=== PATIENT | female | born 1980 | race Caucasian/White ===

== ENCOUNTER 2019-01-14 09:03 | Emergency (ER) | payer OTHER, SELFPAY ==
[2019-01-14 09:10] VITALS: BP 137/90; PULSE 79; RESP 18; TEMP 37; O2SAT 98
[2019-01-14 10:47] VITALS: BP 141/91; PULSE 84; RESP 16; O2SAT 100
--- NOTE | 2019-01-14 10:47 | ED_ITS ---
HPI - Recheck/Abnormal Lab/Rx General Chief Complaint: Recheck/Abnormal Lab/Rx Stated Complaint: reaction to meds Time Seen by Provider: 01/14/19 10:23 Source: patient and family Mode of arrival: ambulatory Limitations: no limitations History of Present Illness HPI narrative: This is a 38-year-old female who comes in with complaint of reaction her medication. Patient states she was taking BuSpar for anxiety. She states that she would have sort of a mild vision change or issues focusing for about an hour every morning and feel nauseated. So they stopped her we use pr 3 days ago. Her primary care had her start taking 20 mg of Celexa daily and patient has been noticing and that she has been feeling more anxious, she has been feeling sort of jittery, she has felt a little nauseated. She denies any passing out, no chest pain or shortness of breath. No vomiting. She has not had any fevers, she has not had any new weakness, numbness or other changes. Patient is not on any other medications regularly. She denies any other medical issues. She has had C-sections but no other prior surgeries. She does not smoke, she denies any recent alcohol use and no illicit. She also denies any reyn-lwi-lprsgah supplements. Related Data Home Medications Medication Instructions Recorded Confirmed citalopram 20 mg PO DAILY 01/14/19 01/14/19 Allergies Allergy/AdvReac Type Severity Reaction Status Date / Time No Known Drug Allergies Allergy Verified 01/14/19 09:12 Review of Systems Review of Systems ROS Unobtainable: All systems reviewed & are unremarkable except as noted in HPI and below Constitutional Denies chills, Denies fever(s) and Reports poor appetite Neurologic Denies confusion Psychiatric Reports as per HPI, Reports anxiety, Denies confusion, Reports panic attacks, Denies homicidal ideation and Denies suicidal ideation [facility] Social History Smoking Status: Never smoker Social History Smoking Status: Never smoker Exam Narrative Exam Narrative: GENERAL: Alert and oriented x three, well-nourished, well- appearing female in no acute distress. HEENT: Head normocephalic, atraumatic, EOMI, pupils reactive, face symmetric, moist mucous membranes NECK: Supple, full range of motion CARDIOVASCULAR: Regular rate and rhythm without murmurs, rubs or gallops. RESPIRATORY: Breath sounds equal bilaterally, no wheezes rales or rhonchi. ABDOMEN: Soft, nontender. Normoactive bowel sounds all 4 quadrants. No guarding or rebound, rigidity, no mass : No CVA tenderness EXTREMITIES: Normal range of motion, no clubbing or edema. Neurovascularly intact NEUROLOGICAL: Cranial nerves II through XII grossly intact. Moving all extremities, 2/4 DTRs bilateral upper and extremities. SKIN: Warm, dry, no petechiae, no rashes or lesions. Initial Vital Signs Initial Vital Signs: Vital Signs Temperature 98.6 F 01/14/19 09:10 Pulse Rate 79 01/14/19 09:10 Respiratory Rate 18 01/14/19 09:10 Blood Pressure 137/90 01/14/19 09:10 Pulse Oximetry 98 01/14/19 09:10 Course Vital Signs - 8 hr 01/14/19 09:10 Temperature 98.6 F Pulse Rate 79 Respiratory Rate 18 Blood Pressure 137/90 Pulse Oximetry 98 MDM - Recheck/Abnormal Lab/Rx MDM Narrative Medical decision making narrative: I suspect patient is either having some withdrawal or some activating symptoms from her Celexa. Discussed with patient she would like to stop the Celexa. We discussed restarting her Buspar and having her contact her primary care tomorrow. Her primary care doctor is on vacation today so she was not able to talk with them on the phone which is why she came to the ER. Patient feels comfortable with this plan. Significant other is also at the bedside and they are both comfortable at this time. We did discuss signs and symptoms to watch for and reasons to return emergently. Discharge Plan Departure Patient Disposition: Home Clinical Impression: Drug side effects Discharge Date/Time: 01/14/19 11:00 Interventions: ED Discharge Assessment Last Done: 01/14/19 10:59 Instructions: DI for Adverse Drug Reaction -- Other Activity Restrictions/Additional Instructions: Call Dr. Alva, tomorrow to follow up and adjust your medications. Stop the Celexa. You may restart your BuSpar, you may start with 1 tablet daily or if you feel comfortable may take 1 tablet twice daily as you were taking before. Return to the emergency department for fevers greater than 100.4, hyper reflexia, stiff muscles or arms, rash, passing out, chest pain, shortness of breath, persistent vomiting, if you have suicidal ideation, feel unsafe or other new or concerning symptoms. Prescriptions: No Action citalopram 20 mg tablet 20 mg PO DAILY RF: 0 Referrals: Vick Alva DO [Primary Care Provider] -
== END 2019-01-14 11:00 | disposition home or self-care (01) ==
PROVIDERS: Emergency Provider Emergency Medicine; PCP Family Medicine
DX: T88.7XXA Unspecified adverse effect of drug or medicament, initial encounter (principal)
CPT/HCPCS: 99282

== ENCOUNTER → 2021-08-10 12:38 | Outpatient (CLI) | payer OTHER, SELFPAY ==
--- NOTE | 2021-08-10 | DI.MG.S_ITS ---
BILATERAL DIGITAL DIAGNOSTIC MAMMOGRAM 3D/2D: 08/10/2021 CLINICAL: Right breast pain. Comparison is made to exams dated: 07/16/2020 mammogram, 06/19/2019 mammogram, and 06/20/2018 mammogram - [facility]. There are scattered fibroglandular elements in both breasts. No significant masses, calcifications, or other findings are seen in either breast. IMPRESSION: INCOMPLETE: NEEDS ADDITIONAL IMAGING EVALUATION There is no abnormality seen in the right breast to correspond with the diffuse pain and fullness. Clinical followup is recommended. Given patient's increased risk of breast cancer, consider breast MRI if symptoms persist. There is no abnormality seen in the right breast to correspond with the skin lesion in the upper outer quadrant, however, ultrasound is recommended. Ultrasound will be performed immediately following the current exam. This exam was interpreted at Station ID: [id number]. NOTE: For mammograms, a report in lay terms will be sent to the patient. Approximately 15% of breast malignancies will not be visualized mammographically. In the management of a palpable breast mass, a negative mammogram must not discourage biopsy of a clinically suspicious lesion. Electronically Signed By: Vincent Campos M.D. ddp/:08/10/2021 14:13:14 ACR BI-RADS Category 0: Incomplete [id number]
--- NOTE | 2021-08-10 | DI.US.S_ITS ---
LIMITED ULTRASOUND OF RIGHT BREAST: 08/10/2021 CLINICAL: Red skin lesion. Comparison is made to exams dated: 08/10/2021 mammogram - [facility], 07/16/2020 mammogram, 06/19/2019 mammogram, 06/20/2018 mammogram, 02/29/2016 mammogram, and 10/27/2014 mammogram - [facility]. Real-time ultrasound of the right breast 10 o'clock region was performed on the area of interest. No discrete cystic or solid mass lesion identified in the area of skin abnormality. There is nonspecific mildly increased vascularity in the visualized breast tissue. IMPRESSION: NEGATIVE There is no sonographic evidence of malignancy. There is no abnormality seen in the right breast to correspond with the skin lesion at 10 o'clock, however, clinical followup is recommended. Given patient's increased risk of breast cancer, consider a breast MRI if clinical concern persists. A 1 year screening mammogram is recommended. This exam was interpreted at Station ID: [id number]. Electronically Signed By: Vincent potter/:08/10/2021 14:15:08 letter sent: Clinical Evaluation Ultrasound BI-RADS: 1 Negative
== END ==
PROVIDERS: PCP Internal Medicine; Referring Provider Internal Medicine; Visit Provider Internal Medicine
DX: N64.4 Mastodynia (principal); R92.2 Inconclusive mammogram; L98.9 Disorder of the skin and subcutaneous tissue, unspecified
CPT/HCPCS: 76642; 77066; G0279

== ENCOUNTER 2024-02-09 20:18 | Emergency (ER) | payer OTHER, SELFPAY ==
[2024-02-09] VITALS (11 sets, daily range): BP systolic 120–190; BP diastolic 74–113; PULSE 98–147; RESP 18–30; TEMP 37.8; O2SAT 89–98; BMI 37.8
--- NOTE | 2024-02-09 20:25 | DI.CT.S_ITS ---
PROCEDURE: CT ANGIO CHEST PE PROTOCOL INDICATIONS: HYPOXIA, TACHY TECHNIQUE: After the administration of intravenous contrast, 2 mm thick sections acquired from the pulmonary apices to the posterior costophrenic angles. 3-dimensional maximum intensity projection (MIP) coronal and sagittal reformats were then acquired through the thorax. For radiation dose reduction, the following was used: automated exposure control, adjustment of mA and/or kV according to patient size. COMPARISON: None. FINDINGS: Image quality: Suboptimal contrast opacification in the pulmonary arteries Lungs and pleura: No dense consolidation or pleural effusion. No pneumothorax. Mild peribronchial thickening, possibly bronchitis. Mediastinum, heart, and esophagus: Contrast opacification is suboptimal. No central pulmonary embolism. No aortic dissection. The ascending aorta is not well seen on this study. Mildly patulous esophagus diffusely. No pathologic lymph nodes by size criteria Prominent hilar lymph nodes, possibly reactive. Chest wall and thyroid: Unremarkable Upper abdomen: No gross abnormality on these arterial phase images Bones: No acute or suspicious osseous finding. Possible findings of osteonecrosis the right humeral head. IMPRESSION: No acute pulmonary embolism. Contrast opacification however is suboptimal, limiting evaluation particularly of the distal arteries. No dense airspace disease or pleural effusion. Mild peribronchial thickening may represent bronchitis. Other findings as above Dictated by: Joseph Rawls M.D. on 02/09/2024 at 21:06 Approved by: Joseph Rawls M.D. on 02/09/2024 at 21:11
--- NOTE | 2024-02-09 20:27 | ED.SOB ---
HPI - SOB/Dyspnea General Chief Complaint: Shortness of Breath/Dyspnea Stated Complaint: SOB Time Seen by Provider: 02/09/24 20:25 History of Present Illness HPI Narrative: 43-year-old female with reported history of long COVID, asthma presents by private vehicle from home for shortness of breath. Patient states that she has felt overall poorly for the last several days with mild shortness of breath, however tonight her symptoms got significantly worse and she decided to come to the emergency department for evaluation. In triage patient noted to be tachycardic, with oxygen saturations 89% on room air. Related Data Home Medications Medication Instructions Recorded Confirmed alprazolam 0.5 mg tablet (Xanax) 0.5 mg PO BEDTIME PRN 12/27/19 12/27/19 venlafaxine 75 mg tablet 75 mg PO DAILY 12/27/19 12/27/19 ivabradine 7.5 mg tablet (Corlanor) 7.5 mg PO BID 02/09/24 02/09/24 Previous Rx's Medication Instructions Recorded desogestrel-e.estradiol 0.15 1 tab PO DAILY PMDD #84 tabs 01/01/20 mg-0.02 mg(21)/e.estrad 0.01 mg(5) tablet (Kariva (28)) methylprednisolone 4 mg tablet 4 mg PO .asdir #24 tabs 02/10/24 (Medrol) Allergies Allergy/AdvReac Type Severity Reaction Status Date / Time No Known Drug Allergies Allergy Verified 12/27/19 13:21 Patient History Medical History Anxiety (~2016) Chicken pox (~1991) Surgical History Anesthesia History of tonsillectomy (~1991) History of right knee surgery (~2002) History of section (~08/2006) History of section (~02/2005) Family History Father Hyperlipidemia History of heart attack Mother Cervical cancer Breast cancer Diabetes mellitus Hypertension Social History Smoking Status: Never smoker Smoking Status: Never smoker alcohol intake frequency: 0-2 drinks per day Substance Use Type: does not use Exam Initial Vital Signs Initial Vital Signs: Vital Signs Temperature 100.1 F H 02/09/24 20:22 Pulse Rate 147 H 02/09/24 20:22 Respiratory Rate 30 H 02/09/24 20:22 Blood Pressure 190/104 H 02/09/24 20:22 Pulse Oximetry 89 L 02/09/24 20:22 Oxygen Delivery Method Room Air 02/09/24 20:22 Const: Awake, alert, uncomfortable appearing Cardiac: Tachycardia, regular rhythm RESP: Tachypnea, nonproductive cough in room, no wheezing MSK: No swelling, full range of motion, pulses equal Skin: Warm, Dry, intact, no rashes Neuro: AO x3, CN II-XII grossly intact, moves all extremities Course Orders Ordered: ED Orders 02/09/24 21:35 CT angio chest PE protocol Stat Discontinued Medications Albuterol/Ipratropium (Albuterol/Ipratropium 3 Ml Ampul) 3 ml INH NOW ONE Stop: 02/09/24 20:39 Last Admin: 02/09/24 23:27 Dose: 3 ml Documented By: Albuterol/Ipratropium (Albuterol/Ipratropium 3 Ml Ampul) 9 ml INH NOW ONE Stop: 02/09/24 23:16 Last Admin: 02/09/24 23:26 Dose: 9 ml Documented By: Methylprednisolone (Methylprednisolone 125 Mg/2 Ml Vial) 125 mg IV NOW ONE Stop: 02/09/24 22:33 Last Admin: 02/09/24 22:42 Dose: 125 mg Documented By: MARKEL Metoprolol Tartrate (Metoprolol Tartrate 5 Mg/5 Ml Inj) 5 mg IV Q5M [facility] Stop: 02/09/24 22:56 Last Admin: 02/09/24 23:10 Dose: 5 mg Documented By: Admin: 02/09/24 22:55 Dose: 5 mg Documented By: Admin: 02/09/24 22:43 Dose: 5 mg Documented By: MARKEL Vital Signs Vital signs: Vital Signs - 8 hr 02/09/24 22:01 02/09/24 22:03 02/09/24 22:03 Pulse Rate 137 H Respiratory Rate 18 Blood Pressure 180/105 H Pulse Oximetry 96 92 02/09/24 22:30 02/09/24 22:30 02/09/24 22:37 Pulse Rate 141 H Respiratory Rate 25 H Blood Pressure 155/113 H 144/91 H Pulse Oximetry 91 02/09/24 22:37 02/09/24 22:50 02/09/24 22:50 Pulse Rate 139 H 114 H Respiratory Rate Blood Pressure 147/86 H Pulse Oximetry 91 93 02/09/24 23:00 02/09/24 23:00 02/09/24 23:30 Pulse Rate 104 H Respiratory Rate Blood Pressure 120/74 136/76 Pulse Oximetry 95 02/09/24 23:30 02/10/24 00:00 02/10/24 00:00 Pulse Rate 98 H 107 H Respiratory Rate Blood Pressure 132/71 Pulse Oximetry 98 97 02/10/24 00:30 02/10/24 00:30 Pulse Rate 109 H Respiratory Rate 17 Blood Pressure 135/81 Pulse Oximetry 95 MDM - SOB/Dyspnea Differential Diagnosis Differential diagnosis: Likely acute exacerbation of chronic obstructive airways disease, community acquired pneumonia and pulmonary embolism Lab Data 02/09/24 20:30 02/09/24 20:30 Labs: Lab Results 02/09/24 Range/Units 20:30 WBC 15.0 H (4.5-11.0) X10^3/uL RBC 4.49 (4.0-5.2) X10^6/uL Hgb 14.1 (12.0-16.0) g/dL Hct 41.2 (36-46) % MCV 91.9 (80-100) fL MCH 31.5 (26-34) PG MCHC 34.3 (30-36) % RDW 13.8 (11.6-14.8) % Plt Count 275 (150-400) X10^3/uL Neut % (Auto) 65.8 (50-75) % Lymph % (Auto) 23.1 L (25-40) % [place] % (Auto) 6.3 (3-14) % Eos % (Auto) 4.2 H (2-4) % Baso % (Auto) 0.6 (0-2) % Neut # (Auto) 9900 H (9688-7008) /uL Lymph # (Auto) 3500 (6016-7084) /uL [place] # (Auto) 900 (0-900) /uL Eos # (Auto) 600 H (0-450) /uL Baso # (Auto) 100 (0-100) /uL PT 10.4 (9.4-12.5) SECONDS INR 0.9 (0.9-1.3) Sodium 138 (137-145) mmol/L Potassium 4.1 (3.4-5.1) mmol/L Chloride 107 (98-107) mmol/L Carbon Dioxide 20 L (22-32) mmol/L BUN 16 (7-17) mg/dL Creatinine 0.77 (0.52-1.04) mg/dL Estimated GFR > 60 (>60) mL/min BUN/Creatinine Ratio 20.8 (6-22) Glucose 98 (70-100) mg/dL Calcium 9.9 (8.4-10.2) mg/dL Total Bilirubin 0.6 (0.2-1.3) mg/dL AST 59 H (14-36) IU/L ALT 50 H (<35) IU/L Alkaline Phosphatase 116 (38-126) U/L Total Creatine Kinase 142 H (30-135) U/L Troponin I < 0.012 (0.01-0.034) ng/mL NT-Pro-B Natriuret Pep 96 (<125) pg/mL Total Protein 7.5 (6.3-8.2) g/dL Albumin 4.2 (3.5-5.0) g/dL Globulin 3.3 (1.7-4.1) g/dL Albumin/Globulin Ratio 1.3 (1.0-2.8) Imaging Data CT scan - chest: My Impression: PROCEDURE: CT ANGIO CHEST PE PROTOCOL INDICATIONS: HYPOXIA, TACHY TECHNIQUE: After the administration of intravenous contrast, 2 mm thick sections acquired from the pulmonary apices to the posterior costophrenic angles. 3-dimensional maximum intensity projection (MIP) coronal and sagittal reformats were then acquired through the thorax. For radiation dose reduction, the following was used: automated exposure control, adjustment of mA and/or kV according to patient size. COMPARISON: [facility], CT, CT ANGIO CHEST PE PROTOCOL, 02/09/2024, 20:29. FINDINGS: Image quality: Diagnostic Lungs and pleura: No dense airspace disease. Mild peribronchial thickening. No pleural effusions. Mediastinum, heart, and esophagus: Mild motion artifact. No acute pulmonary embolism is identified Prominent hilar lymph nodes. No pathologic lymph nodes by size criteria. Normal heart size. Mildly patulous esophagus. Chest wall and thyroid: Unremarkable Upper abdomen: No gross abnormality on these arterial phase images Bones: Nonacute appearing left lower rib deformities IMPRESSION: Mild motion artifact. No acute pulmonary embolism. No dense airspace disease or pleural effusions. Possible findings of bronchitis. Prominent hilar lymph nodes, nonspecific, possibly reactive. Other findings above. Dictated by: Joseph Rawls M.D. on 02/09/2024 at 22:09 Approved by: Joseph Rawls M.D. on 02/09/2024 at 22:14 ECG Data Interpretation: Sinus tachycardia, no ST T wave changes, normal MO MDM Narrative Medical decision making narrative: Shortness of breath with tachycardia and hypoxia. Placed on nasal cannula with improvement in saturations to 95%. Based on patient's presentation, clear lungs on exam, and hypoxia concern is for pulmonary embolism. CT angio ordered for assessment. Unfortunately due to contrast timing bolus unable to see pulmonary arteries passed the main pulmonary artery. Discussed with Radiology, who stated that could not definitively rule out segmental or subsegmental pulmonary embolism based on contrast bolus timing, and if suspicion was high then he recommended rescanning. CT angio negative for pulmonary embolism or pleural effusions. Note possible findings of bronchitis and prominent hilar lymph nodes. Steroids and additional duonebs ordered. Patient improved after steroids and DuoNebs, she has had less coughing and oxygen saturations are now 95% on room air. Patient states that she feels better and her goal would be to go home. Walking ambulation trial showed stable saturations, lowest O2 sat 92%. Patient to be discharged on steroids. Patient requested a steroid taper, since abruptly stopping steroids seems to cause her body aches. A slightly longer taper of steroids sent to pharmacy of choice. Patient counseled to follow up with her primary care doctor or return to the emergency department for any new or worsening concerns. Discharge Plan Departure Patient Disposition: Home Clinical Impression: Bronchitis Instructions: DI for Acute Bronchitis Activity Restrictions/Additional Instructions: Your oxygen saturations are normal here today. Your CT did not show any pneumonia or pulmonary embolism. Follow up with your primary care doctor. Prescriptions: New methylprednisolone [Medrol] 4 mg tablet 4 mg PO .asdir Qty: 24 0RF Rx Instructions: DAY 1: TAKE 6 TABLETS DAY 2: TAKE 5 TABLETS DAY 3: TAKE 4 TABLETS DAY 4: TAKE 3 TABLETS DAY 5: TAKE 2 TABLETS DAY 6: TAKE 2 TABLETS DAY 7: TAKE 1 TABLET DAY 8: TAKE 1 TABLET No Action desog-e.estradiol/e.estradiol [Raudel (28)] 0.15-0.02 mgx21 /0.01 mg x 5 tablet 1 tab PO DAILY Qty: 84 4RF Rx Instructions: Take once daily at same time every day. venlafaxine 75 mg tablet 75 mg PO DAILY alprazolam [Xanax] 0.5 mg tablet 0.5 mg PO BEDTIME PRN Corlanor 7.5 mg tablet 7.5 mg PO BID Referrals: Simeon Thompson MD [Primary Care Provider] - Stand Alone Forms: Patient Portal/API
--- NOTE | 2024-02-09 20:35 | EKG_ITS ---
[facility] [address] [address] Test Date: 2024-02-09 Pat Name: Brigid Pham Department: [facility] Room: Gender: Female Intern Product Marketing Manager: JEAN-PAUL : 1980 Requested By: Order Number: [id number] Reading MD: Cesar Talley Measurements Intervals [place] Rate: 137 P: 61 KS: 130 QRS: 65 QRSD: 72 T: 41 QT: 290 QTc: 437 Interpretive Statements Sinus tachycardia Electronically Signed On 02-10-2024 18:32:41 PDT by Cesar Talley
[2024-02-09 20:44] LABS: Add Manual Diff / Slide Review NO; Basophils Absolute Auto 100 /uL (0-100); Basophils Percent Auto 0.6 % (0-2); Eosinophils Absolute Auto 600 /uL (0-450); Eosinophils Percent Auto 4.2 % (2-4); Hematocrit 41.2 % (36-46); Hemoglobin 14.1 g/dL (12.0-16.0); Lymphocytes Absolute Auto 3500 /uL (1100-4500); Lymphocytes Percent Auto 23.1 % (25-40); Mean Corpuscular HGB Conc 34.3 % (30-36); Mean Corpuscular Hemoglobin 31.5 PG (26-34); Mean Corpuscular Volume 91.9 fL (80-100); Monocytes Absolute Auto 900 /uL (0-900); Monocytes Percent Auto 6.3 % (3-14); Neutrophils Absolute Auto 9900 /uL (1500-7000); Neutrophils Percent Auto 65.8 % (50-75); Platelet Count 275 X10^3/uL (150-400); Red Blood Cell Count 4.49 X10^6/uL (4.0-5.2); Red Cell Distribution Width 13.8 % (11.6-14.8)
[2024-02-09 20:51] LABS: INR 0.9 (0.9-1.3); Prothrombin Time 10.4 SECONDS (9.4-12.5)
[2024-02-09 20:55] LABS: Alanine Aminotransferase 50 IU/L (<35); Albumin 4.2 g/dL (3.5-5.0); Albumin Globulin Ratio 1.3 (1.0-2.8); Alkaline Phosphatase 116 U/L (38-126); Aspartate Aminotransferase 59 IU/L (14-36); BUN Creatinine Ratio 20.8 (6-22); Bilirubin Total 0.6 mg/dL (0.2-1.3); Blood Urea Nitrogen 16 mg/dL (7-17); Calcium 9.9 mg/dL (8.4-10.2); Carbon Dioxide 20 mmol/L (22-32); Chloride 107 mmol/L (98-107); Creatine Kinase 142 U/L (30-135); Estimated Glomerular Filt Rate > 60 mL/min (>60); Globulin 3.3 g/dL (1.7-4.1); Glucose 98 mg/dL (70-100); HEMOLYSIS 21 (0-50); Potassium 4.1 mmol/L (3.4-5.1); Sodium 138 mmol/L (137-145); Total Protein 7.5 g/dL (6.3-8.2)
--- NOTE | 2024-02-09 20:55 | PC.NURSE ---
per pt has had problems since having covid earlier this year does find when she is taking rounds of prednisone but when she is finished she begins to have sob again
[2024-02-09 21:03] LABS: NT-proBNP (BNP-Adult 18+) 96 pg/mL (<125)
[2024-02-09 21:07] LABS: Troponin I < 0.012 ng/mL (0.01-0.034)
--- NOTE | 2024-02-09 21:35 | DI.CT.S_ITS ---
PROCEDURE: CT ANGIO CHEST PE PROTOCOL INDICATIONS: HYPOXIA, TACHY TECHNIQUE: After the administration of intravenous contrast, 2 mm thick sections acquired from the pulmonary apices to the posterior costophrenic angles. 3-dimensional maximum intensity projection (MIP) coronal and sagittal reformats were then acquired through the thorax. For radiation dose reduction, the following was used: automated exposure control, adjustment of mA and/or kV according to patient size. COMPARISON: [facility], CT, CT ANGIO CHEST PE PROTOCOL, 02/09/2024, 20:29. FINDINGS: Image quality: Diagnostic Lungs and pleura: No dense airspace disease. Mild peribronchial thickening. No pleural effusions. Mediastinum, heart, and esophagus: Mild motion artifact. No acute pulmonary embolism is identified Prominent hilar lymph nodes. No pathologic lymph nodes by size criteria. Normal heart size. Mildly patulous esophagus. Chest wall and thyroid: Unremarkable Upper abdomen: No gross abnormality on these arterial phase images Bones: Nonacute appearing left lower rib deformities IMPRESSION: Mild motion artifact. No acute pulmonary embolism. No dense airspace disease or pleural effusions. Possible findings of bronchitis. Prominent hilar lymph nodes, nonspecific, possibly reactive. Other findings above. Dictated by: Joseph Rawls M.D. on 02/09/2024 at 22:09 Approved by: Joseph Rawls M.D. on 02/09/2024 at 22:14
[2024-02-09] MEDS: methylPREDNISolone 125 MG/2 ML VIAL IV (22:42)
[2024-02-09] MEDS: METOPROLOL TARTRATE 5 MG/5 ML INJ IV ×3 (22:43→23:10)
--- NOTE | 2024-02-09 22:43 | PC.NURSE ---
pt O2 sat staying around 89% on room air pt placed on 2L/NC which brought O2 sat up to 95% Dr Payne informed
[2024-02-09] MEDS: ALBUTEROL/IPRATROPIUM 3 ML AMPUL 9 ML INH (23:26)
[2024-02-09] MEDS: ALBUTEROL/IPRATROPIUM 3 ML AMPUL INH (23:27)
[2024-02-10] VITALS: BP 132/71; PULSE 107; O2SAT 97
[2024-02-10 00:30] VITALS: BP 135/81; PULSE 109; RESP 17; O2SAT 95
== END 2024-02-10 01:03 | disposition home or self-care (01) ==
PROVIDERS: Emergency Provider Emergency Medicine; PCP Internal Medicine
DX: J20.9 Acute bronchitis, unspecified (principal); R00.0 Tachycardia, unspecified; R09.02 Hypoxemia
CPT/HCPCS: 36415; 71275; 80053; 82550; 83880; 84484; 85025; 85610; 93005; 94640; 96374; 96375; 99284; J2919; Q9967

== ENCOUNTER → 2024-03-04 08:31 | Outpatient (CLI) | payer OTHER, SELFPAY ==
--- NOTE | 2024-03-04 08:32 | DI.CT.S_ITS ---
PROCEDURE: CT SOFT TISSUE NECK W CON INDICATIONS: throat tightness, persistent cough TECHNIQUE: After the administration of intravenous contrast, 3.0 mm axial sections acquired from the sella to the aortic arch. 3 mm thick coronal and sagittal reformats were generated. For radiation dose reduction, the following was used: automated exposure control. COMPARISON: None. FINDINGS: Skull Base: The visualized intracranial contents, skull, and orbits are unremarkable. Visualized paranasal sinuses are clear. Pharynx and Larynx: The nasopharyngeal airway is patent and midline. Parapharyngeal soft tissues including palatine tonsils and base of the tongue are normal. Retropharyngeal space unremarkable. Normal appearance of the false and true vocal cords. Muscles and Fascial Planes: Fascial planes are well maintained. No abscess or mass lesion. Lymph Nodes: No evidence of adenopathy. Vasculature: Unremarkable. Submandibular and Parotid Glands: Normal in size and attenuation. Thyroid: Unremarkable. No enlarged or calcified nodules. Bones: No acute fracture. No osteolytic or blastic lesion is evident. Normal bone mineralization. Lung Apices: The visualized lung apices are clear. IMPRESSION: Normal CT of the neck Approved by: Shantanu Jose M.D. on 03/04/2024 at 17:26
[2024-03-04 10:11] LABS: Hemoglobin A1C% w Est Avg Glu 5.1 % (4.0-6.0)
[2024-03-04 10:23] LABS: Cholesterol 270 mg/dL (140-199); HDL Cholesterol 98 mg/dL (40-60); LDL Cholesterol Calculated 151 mg/dL (<100); Triglycerides 106 mg/dL (35-150)
[2024-03-04 10:27] LABS: Follicle Stimulating Hormone 4.41 mIU/mL; Luteinizing Hormone 8.34 mIU/mL
[2024-03-04 10:41] LABS: Prolactin 16.3 ng/mL (3.0-18.6)
[2024-03-04 10:51] LABS: TSH w/ Reflex to FT4 3.55 uIU/mL (0.47-4.68)
[2024-03-04 11:31] LABS: Appearance Urine UA SL CLOUDY; Bilirubin Urine UA NEGATIVE (NEGATIVE); Color Urine UA YELLOW; Glucose Urine UA NEGATIVE (Negative); Ketones Urine UA NEGATIVE (NEGATIVE); Leukocyte Esterase Urine UA NEGATIVE (NEGATIVE); Nitrite Urine UA NEGATIVE (Negative); Occult Blood Urine UA TRACE-INTACT (Negative); Protein Urine UA NEGATIVE (Negative); Urobilinogen Urine UA 0.2 E.U./dL (0.2)
[2024-03-04 11:53] LABS: Bacteria Urine Many (>30); RBC Urine 1-5/HPF (0-5/HPF); Squamous Epithelial Cell Urine 10-30 /HPF (0-5/HPF); Urine Volume 10mL (spun); WBC Urine 0-1/HPF (0-5/HPF)
[2024-03-04 11:54] LABS: Culture Indicated Urine Cult Not Indicated
== END ==
LOC: CT 08:32
PROVIDERS: PCP Family Medicine; Referring Provider Family Medicine; Visit Provider Family Medicine
DX: N93.9 Abnormal uterine and vaginal bleeding, unspecified (principal); R09.89 Other specified symptoms and signs involving the circulatory and respiratory systems; R31.9 Hematuria, unspecified
CPT/HCPCS: 36415; 70491; 80061; 81001; 82397; 83001; 83002; 83036; 84146; 84443; Q9967

== ENCOUNTER → 2024-03-08 15:40 | Outpatient (CLI) | payer OTHER, SELFPAY ==
--- NOTE | 2024-03-08 15:41 | DI.US.S_ITS ---
PROCEDURE: US PELVIC COMPLETE INDICATIONS: Abnormal uterine bleeding TECHNIQUE: Real-time scanning was performed of the pelvic organs, with image documentation. Additional endovaginal scanning was necessary due to incomplete visualization of the adnexal and endometrial structures by transabdominal scanning. COMPARISON: [facility], US, US PELVIC COMPLETE, 12/27/2019, 13:41. FINDINGS: Uterus: Uterus is anteverted and normal in size at 9.5 x 54.1 x 5.1 cm. The myometrium is slightly heterogenous. The endometrium measures 6.1 mm combined thickness. Ovaries: The right ovary measures 2.9 x 1.7 x 2.6 cm, with a calculated ovarian volume of 6.9 cc. The left ovary is not identified. The right ovary has a normal sonographic appearance. Less than 12 follicles can be seen in the right ovary. No adnexal masses are seen. Other: No pathologic free abdominal or pelvic fluid. IMPRESSION: No sonographic abnormality of the uterus or right ovary. Nonvisualization of the left ovary. We strive to produce accurate, complete, and clear reports of imaging services. To assist us in improving patient care, this report was composed using standard report templates and voice recognition software. Therefore, it may contain abnormal punctuation, insertions and/or omissions. Occasional wrong-word or sound-alike substitutions may occur. Though we review the report and make efforts to correct it, we do recommend that the report be read carefully in proper context to recognize any text inaccuracies. Dictated by: Sudhakar Kang M.D. on 03/12/2024 at 11:02 Approved by: Sudhakar Kang M.D. on 03/12/2024 at 11:06
--- NOTE | 2024-03-08 15:41 | DI.MG.S_ITS ---
BILATERAL DIGITAL SCREENING MAMMOGRAM 3D/2D WITH CAD: 03/08/2024 CLINICAL: Routine screening. Family history of breast cancer. Comparison is made to exams dated: 08/10/2021 mammogram - [facility], 07/16/2020 mammogram, and 06/19/2019 mammogram - [facility]. There are scattered areas of fibroglandular density in both breasts (category b / 25%-50% glandular tissue). Current study was also evaluated with a Computer Aided Detection (CAD) system. There is a possible irregular high density asymmetry in the left breast at 12 o'clock middle depth. No other significant masses, calcifications, or other findings are seen in either breast. IMPRESSION: INCOMPLETE: NEEDS ADDITIONAL IMAGING EVALUATION The possible irregular high density asymmetry in the left breast is indeterminate. Additional views with possible ultrasound are recommended. Based on the Tyrer Cuzick model (a risk assessment model) the patient's lifetime risk is 18.0% and her 10 year risk is 2.9%. According to the ACR, ACS, and NCCN guidelines, an annual breast MRI exam along with mammogram is recommended if the patient's lifetime risk is 20% or greater. This exam was interpreted at Station ID: [id number]. NOTE: For mammograms, a report in lay terms will be sent to the patient. Approximately 15% of breast malignancies will not be visualized mammographically. In the management of a palpable breast mass, a negative mammogram must not discourage biopsy of a clinically suspicious lesion. Electronically Signed By: Vidya small/hayden:03/08/2024 17:21:01 letter sent: Additional Imaging Needed ACR BI-RADS Category 0: Incomplete 3340F
== END ==
PROVIDERS: PCP Family Medicine; Referring Provider Family Medicine; Visit Provider Family Medicine
DX: Z12.31 Encounter for screening mammogram for malignant neoplasm of breast (principal); N93.9 Abnormal uterine and vaginal bleeding, unspecified; R92.323 Mammographic fibroglandular density, bilateral breasts; Z80.3 Family history of malignant neoplasm of breast
CPT/HCPCS: 76830; 76856; 77063; 77067

== ENCOUNTER → 2024-03-15 11:41 | Outpatient (CLI) | payer OTHER, SELFPAY ==
--- NOTE | 2024-03-15 11:42 | DI.US.S_ITS ---
LIMITED ULTRASOUND OF LEFT BREAST: 03/15/2024 CLINICAL: Patient returns today to evaluate a focal asymmetry in the left breast. Comparison is made to exams dated: 03/15/2024 mammogram, 03/08/2024 mammogram, 08/10/2021 mammogram - [facility], 07/16/2020 mammogram, and 06/19/2019 mammogram - [facility]. Color flow and real-time ultrasound of the left breast 12 o'clock region were performed. Pichardo scale images of the real-time examination were reviewed. No significant abnormalities were seen sonographically in the left breast. IMPRESSION: NEGATIVE There is no sonographic evidence of malignancy. A 1 year screening mammogram is recommended. Exam findings were conveyed to the patient. This exam was interpreted at Station ID: [id number]. Electronically Signed By: Joshua Malhotra M.D. slc/:03/15/2024 12:53:36 letter sent: Normal Exam Ultrasound BI-RADS: 1 Negative
--- NOTE | 2024-03-15 11:42 | DI.MG.S_ITS ---
UNILATERAL LEFT DIGITAL DIAGNOSTIC MAMMOGRAM 3D/2D WITH ADDITIONAL VIEWS: 03/15/2024 CLINICAL: Additional evaluation requested from prior study. Comparison is made to exams dated: 03/08/2024 mammogram, 08/10/2021 mammogram - [facility], and 07/16/2020 mammogram - [facility]. There are scattered areas of fibroglandular density in the left breast (category b / 25%-50% glandular tissue). There is a possible asymmetry in the left breast at 12 o'clock middle depth. This is not seen in additional views. No other significant masses or calcifications are seen in the breast. IMPRESSION: INCOMPLETE: NEEDS ADDITIONAL IMAGING EVALUATION The possible asymmetry in the left breast is indeterminate. A second look with ultrasound is recommended and will immediately follow. Based on the Tyrer Cuzick model (a risk assessment model) the patient's lifetime risk is 18.0% and her 10 year risk is 2.9%. According to the ACR, ACS, and NCCN guidelines, an annual breast MRI exam along with mammogram is recommended if the patient's lifetime risk is 20% or greater. This exam was interpreted at Station ID: [id number]. NOTE: For mammograms, a report in lay terms will be sent to the patient. Approximately 15% of breast malignancies will not be visualized mammographically. In the management of a palpable breast mass, a negative mammogram must not discourage biopsy of a clinically suspicious lesion. Electronically Signed By: Joshua Malhotra M.D. slc/:03/15/2024 12:14:48 ACR BI-RADS Category 0: Incomplete 3340F
== END ==
LOC: MAMMO 11:42
PROVIDERS: PCP Family Medicine; Referring Provider Family Medicine; Visit Provider Family Medicine
DX: R92.8 Other abnormal and inconclusive findings on diagnostic imaging of breast (principal); Z12.39 Encounter for other screening for malignant neoplasm of breast; N63.20 Unspecified lump in the left breast, unspecified quadrant
CPT/HCPCS: 76642; 77065; G0279

== ENCOUNTER → 2024-04-23 14:42 | Outpatient (CLI) | payer OTHER, SELFPAY ==
--- NOTE | 2024-04-23 14:44 | DI.RAD.S_ITS ---
PROCEDURE: XR FOOT RT MIN 3V INDICATIONS: Pain 4th and 5th digits following trauma. TECHNIQUE: Three views of the right foot were obtained COMPARISON: None. FINDINGS: Bones: Mild hallux valgus , pes cavus and hammertoe deformities in the 2nd through 5th digits noted. Joints: The joint spaces are normal in width and alignment without arthritic change. Soft tissues: Mild diffuse soft tissue swelling noted. IMPRESSION: Chronic findings. No fracture . Dictated by: Jerry Hathaway M.D. on 04/24/2024 at 10:20 Approved by: Jerry Hathaway M.D. on 04/24/2024 at 10:22
== END ==
PROVIDERS: PCP Family Medicine; Referring Provider Family Medicine; Visit Provider Family Medicine
DX: M20.11 Hallux valgus (acquired), right foot (principal); M25.571 Pain in right ankle and joints of right foot
CPT/HCPCS: 73630

== ENCOUNTER 2024-08-29 12:37 | Emergency (ER) | payer OTHER, SELFPAY ==
[2024-08-29] VITALS (7 sets, daily range): BP systolic 147–174; BP diastolic 65–100; PULSE 80–89; RESP 12–18; TEMP 36.7; O2SAT 96–100; BMI 35.9
[2024-08-29 15:06] LABS: Add Manual Diff / Slide Review NO; Basophils Absolute Auto 100 /uL (0-100); Basophils Percent Auto 0.6 % (0-2); Eosinophils Absolute Auto 0 /uL (0-450); Eosinophils Percent Auto 0.2 % (2-4); Hematocrit 46.2 % (36-46); Hemoglobin 15.9 g/dL (12.0-16.0); Lymphocytes Absolute Auto 1200 /uL (1100-4500); Lymphocytes Percent Auto 8.8 % (25-40); Mean Corpuscular HGB Conc 34.4 % (30-36); Mean Corpuscular Hemoglobin 31.4 PG (26-34); Mean Corpuscular Volume 91.4 fL (80-100); Monocytes Absolute Auto 700 /uL (0-900); Monocytes Percent Auto 4.9 % (3-14); Neutrophils Absolute Auto 12000 /uL (1500-7000); Neutrophils Percent Auto 85.5 % (50-75); Platelet Count 280 X10^3/uL (150-400); Red Blood Cell Count 5.06 X10^6/uL (4.0-5.2); Red Cell Distribution Width 14.8 % (11.6-14.8); White Blood Cell Count 14.1 X10^3/uL (4.5-11.0)
[2024-08-29 15:13] LABS: Prothrombin Time 11.7 SECONDS (9.4-12.5)
[2024-08-29 15:15] LABS: PTT Partial Thromboplastin Tim 35 SECONDS (25.1-36.5)
[2024-08-29 15:17] LABS: Alanine Aminotransferase 52 IU/L (<35); Albumin Globulin Ratio 1.4 (1.0-2.8); Alkaline Phosphatase 93 U/L (38-126); Aspartate Aminotransferase 52 IU/L (14-36); BUN Creatinine Ratio 13.5 (6-22); Bilirubin Total 1.2 mg/dL (0.2-1.3); Blood Urea Nitrogen 10 mg/dL (7-17); Calcium 10.5 mg/dL (8.4-10.2); Carbon Dioxide 23 mmol/L (22-32); Chloride 99 mmol/L (98-107); Estimated Glomerular Filt Rate > 60 mL/min (>60); Globulin 3.6 g/dL (1.7-4.1); Glucose 91 mg/dL (70-100); HEMOLYSIS < 15 (0-50); Potassium 4.1 mmol/L (3.4-5.1); Sodium 136 mmol/L (137-145); Total Protein 8.6 g/dL (6.3-8.2)
[2024-08-29 15:30] LABS: Ictotest Urine Positive (Negative); Urine Volume 10mL (spun)
[2024-08-29 15:31] LABS: Bacteria Urine Occasional (0-1); Culture Indicated Urine Cult Not Indicated; Mucus Urine 3+ (Negative); RBC Urine 0-1/HPF (0-5/HPF); Squamous Epithelial Cell Urine 5-10 /HPF (0-5/HPF); WBC Urine 1-5/HPF (0-5/HPF)
[2024-08-29] MEDS: PANTOPRAZOLE 40 MG VIAL 80 MG IV (15:31)
--- NOTE | 2024-08-29 16:25 | ED.GIBLEED ---
HPI - GI Bleed <Richard Lynnervin, DO - Last Filed: 08/29/24 18:09> General Chief complaint: GI Bleed Stated complaint: abd pain [id number] vomitting, diarrhea, BRBPR Time Seen by Provider: 08/29/24 16:25 Source: patient Mode of arrival: Ambulatory History of Present Illness HPI Narrative: Patient is a 44-year-old female with a past medical history of asthma, comes into the ED from home for evaluation of abdominal pain nausea vomiting diarrhea bright red blood per rectum. Patient states that symptoms started earlier this morning lasting for about 2 hours with slight improvement but given persistent symptoms decided come into the ED for further evaluation treatment. Denies any recent travel denies any recent sick contacts denies any recent antibiotic use. She denies any pain with defecation. He is that her symptoms have improved but are waxing and waning in nature describes as a pressure nothing making it better or worse. Not on any blood thinners. No trauma or falls. Related Data Home Medications Medication Instructions Recorded Confirmed alprazolam 0.5 mg tablet (Xanax) 0.5 mg PO BEDTIME PRN 12/27/19 07/25/24 ivabradine 7.5 mg tablet (Corlanor) 7.5 mg PO BID 02/09/24 07/25/24 montelukast 10 mg tablet 10 mg PO DAILY 02/15/24 07/25/24 omeprazole 20 mg capsule,delayed 20 mg PO DAILY 02/15/24 07/25/24 release sertraline 100 mg tablet 100 mg PO DAILY 02/15/24 07/25/24 sertraline 50 mg tablet 50 mg PO DAILY 02/15/24 07/25/24 Previous Rx's Medication Instructions Recorded fluticasone 500 mcg-salmeterol 50 1 inh inhalation BID #60 ea 03/13/24 mcg/dose blistr powdr for inhalation (Wixela Inhub) tiotropium bromide 2.5 2 puff inhalation DAILY #4 grams 03/13/24 mcg/actuation mist for inhalation (Spiriva Respimat) ondansetron 4 mg disintegrating 4 mg PO Q8H PRN nausea and 07/25/24 tablet vomiting #20 tabs semaglutide 0.25 mg or 0.5 mg (2 1 mg (1.472 mL) SUBCUT QWEEK #6 mL 08/01/24 mg/3 mL) subcutaneous pen injector (Ozempic) amoxicillin 875 mg-potassium 1 tab PO BID #20 tabs 08/29/24 clavulanate 125 mg tablet Allergies Allergy/AdvReac Type Severity Reaction Status Date / Time No Known Drug Allergies Allergy Verified 07/25/24 14:42 Review of Systems <Richard Casey DO - Last Filed: 08/29/24 18:09> Review of Systems Narrative: General: Denies fever, chills, weight loss HEENT: Denies headache, eye drainage, eye irritation, head trauma, sore throat, voice change Cardiovascular: Denies any chest pain, palpitations, shortness of breath, tachycardia Respiratory: Denies any shortness of breath, cough, wheeze, stridor GI/: Positive abdominal pain, nausea, vomiting, diarrhea, bright red blood per rectum, denies melanotic stools, urinary frequency, urinary retention, dysuria, hematuria MSK: Denies any joint pain, muscle pains, swelling Skin: Denies any rashes, lesions, discoloration Neuro: Denies any headache, lightheadedness, dizziness, fainting, weakness Psych: Denies SI/HI Patient History <Richard Casey DO - Last Filed: 08/29/24 18:09> Medical History (Updated 08/29/24 @ 19:12 by Delano Jameson MD) Asthma (~2019) Anxiety (~2016) Chicken pox (~1991) Surgical History Anesthesia History of tonsillectomy (~1991) History of right knee surgery (~2002) History of section (~08/2006) History of section (~02/2005) Family History (Updated 02/19/24 @ 19:20 by Caprice Funez) Father Hyperlipidemia History of heart attack Hypertension Mental health problem Mother Cervical cancer Breast cancer Diabetes mellitus Hypertension Hyperlipidemia Mental health problem Grandfather History of heart disease Hyperlipidemia Hypertension Grandmother History of heart disease Social History Smoking Status: Never smoker Smoking Status: Never smoker alcohol intake frequency: 0-2 drinks per day Exam <Richard Casey DO - Last Filed: 08/29/24 18:09> Narrative Exam Narrative: General: Cooperative, comfortable, well-developed, not in acute distress HEENT: Normocephalic, atraumatic, PERRLA, normal sclera, eyelids normal, Neck: Active full range of motion, atraumatic Chest: Normal to inspection, negative crepitus, no overlying erythema ecchymosis Respiratory: Normal respiratory effort, not in acute respiratory distress, clear to auscultation bilaterally negative cough, wheeze, tachypnea, rhonchi, rales Cardiology: Regular rate rhythm negative gallop, murmur, rubs GI/: Normal to inspection, soft, nonrigid, no tenderness to palpation, exam deferred MSK: Full range of active range of motion of all 4 extremities, atraumatic Skin: No rashes lesions noted Neuro: Alert awake oriented x3, moves all 4 extremities spontaneously, cranial nerves intact, able to answer all questions appropriately follows commands appropriately Psych: Cooperative, negative suicidal or homicidal ideations Initial Vital Signs Initial Vital Signs: Vital Signs Temperature 98.1 F 08/29/24 12:59 Pulse Rate 89 08/29/24 12:59 Respiratory Rate 18 08/29/24 12:59 Blood Pressure 174/100 H 08/29/24 12:59 Pulse Oximetry 100 08/29/24 12:59 Oxygen Delivery Method Room Air 08/29/24 12:59 <Delano Jameson MD - Last Filed: 08/30/24 03:21> Initial Vital Signs Initial Vital Signs: Vital Signs Temperature 98.1 F 08/29/24 12:59 Pulse Rate 89 08/29/24 12:59 Respiratory Rate 18 08/29/24 12:59 Blood Pressure 174/100 H 08/29/24 12:59 Pulse Oximetry 100 08/29/24 12:59 Oxygen Delivery Method Room Air 08/29/24 12:59 Course <Richard Casey DO - Last Filed: 08/29/24 18:09> Orders Ordered: Discontinued Medications Amoxicillin/Clavulanate Potassium (Amoxicillin/Clav 875/125 Mg) 1 tab PO NOW ONE Stop: 08/29/24 19:02 Last Admin: 08/29/24 19:19 Dose: 1 tab Documented By: CLEMENTE Morphine Sulfate (Morphine 4 Mg/Ml Inj) 4 mg IV NOW ONE Stop: 08/29/24 16:42 Last Admin: 08/29/24 17:15 Dose: 4 mg Documented By: MACKENZIE Ondansetron HCl (Ondansetron 4 Mg/2 Ml Inj) 4 mg IV NOW PRN PRN Reason: Nausea And Vomiting Last Admin: 08/29/24 17:16 Dose: 4 mg Documented By: MACKENZIE Ondansetron HCl (Ondansetron 4 Mg Odt) 4 mg SL NOW PRN PRN Reason: Nausea And Vomiting Pantoprazole Sodium (Pantoprazole 40 Mg Vial) 80 mg IV NOW ONE Stop: 08/29/24 13:06 Last Admin: 08/29/24 15:31 Dose: 80 mg Documented By: [place] Vital Signs Vital signs: Vital Signs - 8 hr 08/29/24 12:59 08/29/24 17:30 08/29/24 18:13 Temperature 98.1 F Pulse Rate 89 80 80 Respiratory Rate 18 16 Blood Pressure 174/100 H 170/65 H Pulse Oximetry 100 100 98 Oxygen Delivery Method Room Air Room Air 08/29/24 18:14 08/29/24 18:14 Temperature Pulse Rate 89 Respiratory Rate Blood Pressure 149/84 H Pulse Oximetry 99 Oxygen Delivery Method <Delano Jameson MD - Last Filed: 08/30/24 03:21> Orders Ordered: Discontinued Medications Amoxicillin/Clavulanate Potassium (Amoxicillin/Clav 875/125 Mg) 1 tab PO NOW ONE Stop: 08/29/24 19:02 Last Admin: 08/29/24 19:19 Dose: 1 tab Documented By: CLEMENTE Morphine Sulfate (Morphine 4 Mg/Ml Inj) 4 mg IV NOW ONE Stop: 08/29/24 16:42 Last Admin: 08/29/24 17:15 Dose: 4 mg Documented By: MACKENZIE Ondansetron HCl (Ondansetron 4 Mg/2 Ml Inj) 4 mg IV NOW PRN PRN Reason: Nausea And Vomiting Last Admin: 08/29/24 17:16 Dose: 4 mg Documented By: MACKENZIE Ondansetron HCl (Ondansetron 4 Mg Odt) 4 mg SL NOW PRN PRN Reason: Nausea And Vomiting Pantoprazole Sodium (Pantoprazole 40 Mg Vial) 80 mg IV NOW ONE Stop: 08/29/24 13:06 Last Admin: 08/29/24 15:31 Dose: 80 mg Documented By: MPO Vital Signs Vital signs: Vital Signs - 8 hr 08/29/24 12:59 08/29/24 17:30 08/29/24 18:13 Temperature 98.1 F Pulse Rate 89 80 80 Respiratory Rate 18 16 Blood Pressure 174/100 H 170/65 H Pulse Oximetry 100 100 98 Oxygen Delivery Method Room Air Room Air 08/29/24 18:14 08/29/24 18:14 Temperature Pulse Rate 89 Respiratory Rate Blood Pressure 149/84 H Pulse Oximetry 99 Oxygen Delivery Method MDM - GI Bleed <Ricahrd Casey, - Last Filed: 08/29/24 18:09> Differential Diagnosis Differential diagnosis: Likely infectious diarrhea, Lower gastrointestinal hemorrhage, hematochezia and other (Electrolyte abnormality, anemia) Lab Data 08/29/24 14:50 08/29/24 14:50 Labs: Lab Results 08/29/24 08/29/24 Range/Units 14:50 15:00 WBC 14.1 H (4.5-11.0) X10^3/uL RBC 5.06 (4.0-5.2) X10^6/uL Hgb 15.9 (12.0-16.0) g/dL Hct 46.2 H (36-46) % MCV 91.4 (80-100) fL MCH 31.4 (26-34) PG MCHC 34.4 (30-36) % RDW 14.8 (11.6-14.8) % Plt Count 280 (150-400) X10^3/uL Neut % (Auto) 85.5 H (50-75) % Lymph % (Auto) 8.8 L (25-40) % [place] % (Auto) 4.9 (3-14) % Eos % (Auto) 0.2 L (2-4) % Baso % (Auto) 0.6 (0-2) % Neut # (Auto) 23369 H (2075-0486) /uL Lymph # (Auto) 1200 (8051-9160) /uL [place] # (Auto) 700 (0-900) /uL Eos # (Auto) 0 (0-450) /uL Baso # (Auto) 100 (0-100) /uL PT 11.7 (9.4-12.5) SECONDS INR 1.0 (0.9-1.3) APTT 35 (25.1-36.5) SECONDS Sodium 136 L (137-145) mmol/L Potassium 4.1 (3.4-5.1) mmol/L Chloride 99 (98-107) mmol/L Carbon Dioxide 23 (22-32) mmol/L BUN 10 (7-17) mg/dL Creatinine 0.74 (0.52-1.04) mg/dL Estimated GFR > 60 (>60) mL/min BUN/Creatinine Ratio 13.5 (6-22) Glucose 91 (70-100) mg/dL Calcium 10.5 H (8.4-10.2) mg/dL Total Bilirubin 1.2 (0.2-1.3) mg/dL AST 52 H (14-36) IU/L ALT 52 H (<35) IU/L Alkaline Phosphatase 93 (38-126) U/L Total Protein 8.6 H (6.3-8.2) g/dL Albumin 5.0 (3.5-5.0) g/dL Globulin 3.6 (1.7-4.1) g/dL Albumin/Globulin Ratio 1.4 (1.0-2.8) Ur Bilirubin Confirm Positive H (Negative) Urine RBC 0-1/hpf (0-5/HPF) Urine WBC 1-5/hpf (0-5/HPF) Ur Squamous Epith Cells 5-10 /hpf H (0-5/HPF) Urine Bacteria Occasional (0-1) (None) Urine Mucus 3+ H (Negative) Ur Culture Indicated? Cult not indicated Vol Urine Centrifuged 10ml (spun) Stl C. cayetanensis PCR Not detected (Not Detect) Stool Rotavirus (PCR) Not detected (Not Detect) Stool Adenovirus (PCR) Not detected (Not Detect) Stool Astrovirus (PCR) Not detected (Not Detect) Stool Cryptosporidium PCR Not detected (Not Detect) Stl E.coli Shiga Tox PCR Not detected (Not Detect) St Sh/Enteroin Ecoli PCR Not detected (Not Detect) Stl Enterotoxigenic E PCR Not detected (Not Detect) Stool EPEC (PCR) Not detected (Not Detect) Stl E. histolytica PCR Not detected (Not Detect) Stool Giardia Lamblia PCR Not detected (Not Detect) Stool Sapovirus (PCR) Not detected (Not Detect) Stl P. shigelloides PCR Not detected (Not Detect) St Y.enterocolitica PCR Not detected (Not Detect) Stool Vibrio (PCR) Not detected (Not Detect) Stl Vibrio cholerae PCR Not detected (Not Detect) Stl Enteroaggr Ecoli PCR Not detected (Not Detect) Stl Norovirus GI/GII PCR Not detected (Not Detect) Campylobacter (PCR) Not detected (Not Detect) C. difficile Tox (PCR) Not detected (Not Detect) Salmonella (PCR) Not detected (Not Detect) Blood Type O Negative Antibody Screen Negative Point of Care Testing Test Results Negative Stool Occult Blood Positive Urine Dip Bedside Urine Glucose Negative Bedside Urine Bilirubin + 1 Bedside Urine Ketone +++ 80 Urine Specific [place] 1.020 Bedside Urine Occult Blood +/- Bedside Urine pH 6.0 Bedside Urine Protein + 30 Bedside Urine Urobilinogen - Negative Bedside Urine Nitrite - Negative Bedside Urine Leukocytes +/- 15 Esterase MDM Narrative Medical decision making narrative: 44-year-old female past medical history of asthma comes into the ED for abdominal pain nausea vomiting diarrhea with bright red blood per rectum started earlier today. Patient complaining of cramping abdominal pain waxing and waning in nature nothing making it better or worse no recent travel no known sick contacts no recent antibiotic use. Patient not complaining of any pain with defecation, stating that she would like to defer rectal exam given the fact that she is not having any pain and does not believe she is having any hemorrhoid or anal fissures. Patient with hemoglobin 15.9, Chem panel unremarkable, urinalysis not consistent with an acute urinary tract infection. Patient had CT scan of the abdomen and pelvis performed here as well as GI panel. Patient with a GBS score of 0. 1800: Patient signed out to oncoming provider patient pending CT scan and GI panel, symptoms more likely secondary to gastroenteritis. <Delano Jameson MD - Last Filed: 08/30/24 03:21> Lab Data Labs: Lab Results 08/29/24 08/29/24 Range/Units 14:50 15:00 WBC 14.1 H (4.5-11.0) X10^3/uL RBC 5.06 (4.0-5.2) X10^6/uL Hgb 15.9 (12.0-16.0) g/dL Hct 46.2 H (36-46) % MCV 91.4 (80-100) fL MCH 31.4 (26-34) PG MCHC 34.4 (30-36) % RDW 14.8 (11.6-14.8) % Plt Count 280 (150-400) X10^3/uL Neut % (Auto) 85.5 H (50-75) % Lymph % (Auto) 8.8 L (25-40) % [place] % (Auto) 4.9 (3-14) % Eos % (Auto) 0.2 L (2-4) % Baso % (Auto) 0.6 (0-2) % Neut # (Auto) 36884 H (2885-3389) /uL Lymph # (Auto) 1200 (7421-5171) /uL [place] # (Auto) 700 (0-900) /uL Eos # (Auto) 0 (0-450) /uL Baso # (Auto) 100 (0-100) /uL PT 11.7 (9.4-12.5) SECONDS INR 1.0 (0.9-1.3) APTT 35 (25.1-36.5) SECONDS Sodium 136 L (137-145) mmol/L Potassium 4.1 (3.4-5.1) mmol/L Chloride 99 (98-107) mmol/L Carbon Dioxide 23 (22-32) mmol/L BUN 10 (7-17) mg/dL Creatinine 0.74 (0.52-1.04) mg/dL Estimated GFR > 60 (>60) mL/min BUN/Creatinine Ratio 13.5 (6-22) Glucose 91 (70-100) mg/dL Calcium 10.5 H (8.4-10.2) mg/dL Total Bilirubin 1.2 (0.2-1.3) mg/dL AST 52 H (14-36) IU/L ALT 52 H (<35) IU/L Alkaline Phosphatase 93 (38-126) U/L Total Protein 8.6 H (6.3-8.2) g/dL Albumin 5.0 (3.5-5.0) g/dL Globulin 3.6 (1.7-4.1) g/dL Albumin/Globulin Ratio 1.4 (1.0-2.8) Ur Bilirubin Confirm Positive H (Negative) Urine RBC 0-1/hpf (0-5/HPF) Urine WBC 1-5/hpf (0-5/HPF) Ur Squamous Epith Cells 5-10 /hpf H (0-5/HPF) Urine Bacteria Occasional (0-1) (None) Urine Mucus 3+ H (Negative) Ur Culture Indicated? Cult not indicated Vol Urine Centrifuged 10ml (spun) Stl C. cayetanensis PCR Not detected (Not Detect) Stool Rotavirus (PCR) Not detected (Not Detect) Stool Adenovirus (PCR) Not detected (Not Detect) Stool Astrovirus (PCR) Not detected (Not Detect) Stool Cryptosporidium PCR Not detected (Not Detect) Stl E.coli Shiga Tox PCR Not detected (Not Detect) St Sh/Enteroin Ecoli PCR Not detected (Not Detect) Stl Enterotoxigenic E PCR Not detected (Not Detect) Stool EPEC (PCR) Not detected (Not Detect) Stl E. histolytica PCR Not detected (Not Detect) Stool Giardia Lamblia PCR Not detected (Not Detect) Stool Sapovirus (PCR) Not detected (Not Detect) Stl P. shigelloides PCR Not detected (Not Detect) St Y.enterocolitica PCR Not detected (Not Detect) Stool Vibrio (PCR) Not detected (Not Detect) Stl Vibrio cholerae PCR Not detected (Not Detect) Stl Enteroaggr Ecoli PCR Not detected (Not Detect) Stl Norovirus GI/GII PCR Not detected (Not Detect) Campylobacter (PCR) Not detected (Not Detect) C. difficile Tox (PCR) Not detected (Not Detect) Salmonella (PCR) Not detected (Not Detect) Blood Type O Negative Antibody Screen Negative Point of Care Testing Test Results Negative Stool Occult Blood Positive Urine Dip Bedside Urine Glucose Negative Bedside Urine Bilirubin + 1 Bedside Urine Ketone +++ 80 Urine Specific [place] 1.020 Bedside Urine Occult Blood +/- Bedside Urine pH 6.0 Bedside Urine Protein + 30 Bedside Urine Urobilinogen - Negative Bedside Urine Nitrite - Negative Bedside Urine Leukocytes +/- 15 Esterase MDM Narrative Medical decision making narrative: 44-year-old female past medical history of asthma comes into the ED for abdominal pain nausea vomiting diarrhea with bright red blood per rectum started earlier today. Patient complaining of cramping abdominal pain waxing and waning in nature nothing making it better or worse no recent travel no known sick contacts no recent antibiotic use. Patient not complaining of any pain with defecation, stating that she would like to defer rectal exam given the fact that she is not having any pain and does not believe she is having any hemorrhoid or anal fissures. Patient with hemoglobin 15.9, Chem panel unremarkable, urinalysis not consistent with an acute urinary tract infection. Patient had CT scan of the abdomen and pelvis performed here as well as GI panel. Patient with a GBS score of 0. 1800: Patient signed out to oncoming provider patient pending CT scan and GI panel, symptoms more likely secondary to gastroenteritis. 08/29/24, Trino Bruner. Sign-out from Dr. Casey. 44-year-old female with recent nausea vomiting diarrhea, had 1 episode small amount of bright red blood per rectum, no abdominal pain, no hemorrhoids, declined rectal examination, had CT scan showing diffuse colitis changes, specimen was received by lab awaiting results of GI pathogen panel testing. UA negative. Assumed interim care. GI panel negative. CT abdomen pelvis with IV contrast. Impressions: ?Mild mesenteric fat stranding around the transverse and left colon with mild wall thickening. Findings may represent colitis. No other acute abdominopelvic process identified.? See radiology report Focal colitis with negative GI panel, loose stools, scant red blood x1 episode, no active bleeding for multiple hours here in the emergency department. Consider treatment with the antibiotics for focal area of colitis noted on CT scanning, especially in setting of rectal bleeding even if was scant and small episode, patient prefers outpatient management for now. Declines admission when offered. First oral dose Augmentin now, prescription for oral Augmentin course to take in follow up. Advised follow up with PCP. Return precautions discussed. Discharge Plan Departure Patient Disposition: Home Clinical Impression: Colitis Activity Restrictions/Additional Instructions: Ms. Pham, You had diarrhea nausea or vomiting symptoms. Reported small amount of blood. Stool specimen showed no viral or bacterial identified pathogen. CT abdomen and pelvis showed focal colitis inflammatory change, without any obstruction or abscess or perforation at this time. Since you had a small amount of blood reported with a focal area of colitis, it might be prudent to treat with antibiotics in case this is a bacterial process that might proceed in cause further bleeding. You did not take any blood thinner medications. We discussed admission, you preferred to be treated as an outpatient at this time. Course of the antibiotics to be initiated, 1st dose of Augmentin now and further prescription sent to your pharmacy. Take antibiotics as directed. Consider recheck with your regular doctor in the next couple of days to reassess symptoms on antibiotics. Return earlier to this/nearest emergency department for any change worsening symptoms or any concerns prior. Thank you for allowing our team to evaluate you today. Prescriptions: New amoxicillin-pot clavulanate 875-125 mg tablet 1 tab PO BID Qty: 20 0RF No Action ondansetron 4 mg tablet,disintegrating 4 mg PO Q8H PRN (Reason: nausea and vomiting) Qty: 20 0RF omeprazole 20 mg capsule,delayed release(DR/EC) 20 mg PO DAILY sertraline 100 mg tablet 100 mg PO DAILY sertraline 50 mg tablet 50 mg PO DAILY montelukast 10 mg tablet 10 mg PO DAILY Ozempic 0.25 mg or 0.5 mg (2 mg/3 mL) pen injector 1 mg SUBCUT QWEEK Qty: 6 0RF Rx Instructions: Ok to compound alprazolam [Xanax] 0.5 mg tablet 0.5 mg PO BEDTIME PRN Corlanor 7.5 mg tablet 7.5 mg PO BID fluticasone propion-salmeterol [Wixela Inhub] 500-50 mcg/dose blister with device 1 inh inhalation BID Qty: 60 11RF Spiriva Respimat 2.5 mcg/actuation mist 2 puff inhalation DAILY Qty: 4 5RF Referrals: Bartolo Hernandez MD [Non-Staff] - Grace Dozier MD [Primary Care Provider] - Stand Alone Forms: Patient Portal/API/Survey
--- NOTE | 2024-08-29 16:27 | DI.CT.S_ITS ---
PROCEDURE: CT ABDOMEN PELVIS W CON INDICATIONS: diffuse abd pain TECHNIQUE: After the administration of intravenous contrast, axial sections acquired from the lung bases to the pubic symphysis. Coronal and sagittal reformats were performed. For radiation dose reduction, the following was used: automated exposure control, adjustment of mA and/or kV according to patient size. COMPARISON: None. FINDINGS: Image quality: Diagnostic. Lower Chest: No significant findings. ABDOMEN: Liver: No solid mass. Gallbladder: No radiopaque gallstones or wall thickening. Biliary ducts: No biliary dilation. Pancreas: No ductal dilation. Spleen: Size is within normal limits. Adrenal Glands: No adrenal nodules. Kidneys and Ureters: No hydronephrosis. No solid mass. No complex renal cystic lesion which requires follow up. Stomach and Bowel: No small bowel obstruction.. Mild mesenteric fat stranding surrounding the transverse and descending colon with mild wall thickening. Findings may represent colitis. Normal caliber appendix. Peritoneum: No abnormal intraperitoneal fluid. No free air. Ventral Wall: No significant ventral hernia. Abdominal Nodes: No retroperitoneal or mesenteric adenopathy by size criteria. Vessels: Aorta and inferior vena cava are normal in size. PELVIS: Pelvic Organs: Unremarkable. Bladder: No bladder wall thickening, accounting for underdistention. Pelvic Nodes: No enlarged lymph nodes. Miscellaneous: No inguinal hernias are seen. Bones: No aggressive osseous abnormality. IMPRESSION: Mild mesenteric fat stranding around the transverse and left colon with mild wall thickening. Findings may represent colitis. No other acute abdominopelvic process identified. Approved by: Kaylee Whalen M.D.,Ph.D. on 08/29/2024 at 18:10
[2024-08-29] MEDS: MORPHINE 4 MG/ML INJ IV (17:15)
[2024-08-29] MEDS: ONDANSETRON 4 MG/2 ML INJ IV (17:16)
[2024-08-29 18:29] LABS: Adenovirus F 40/41 Not Detected (Not Detect); Astrovirus Not Detected (Not Detect); Campylobacter Not Detected (Not Detect); Clostridium difficile toxin AB Not Detected (Not Detect); Cryptosporidium Not Detected (Not Detect); Cyclospora cayetanensis Not Detected (Not Detect); Entamoeba histolytica Not Detected (Not Detect); Enteroaggregative E.coli Not Detected (Not Detect); Enteropathogenic E.coli Not Detected (Not Detect); Enterotoxigenic E.coli It/st Not Detected (Not Detect); Giardia lamblia Not Detected (Not Detect); Norovirus GI/GII Not Detected (Not Detect); Plesiomonsa shigelloides Not Detected (Not Detect); Rotavirus A Not Detected (Not Detect); Salmonella Not Detected (Not Detect); Sapovirus Not Detected (Not Detect); Shiga-like toxin-prod E.coli Not Detected (Not Detect); Shigella/Enteroinvasive E.coli Not Detected (Not Detect); Vibrio Not Detected (Not Detect); Vibrio cholerae Not Detected (Not Detect); Yersinia enterocolitica Not Detected (Not Detect)
[2024-08-29] MEDS: AMOXICILLIN/CLAV 875/125 MG 1 TAB PO (19:19)
== END 2024-08-29 19:27 | disposition home or self-care (01) ==
PROVIDERS: Student in an Organized Health Care Education/Training Program; Emergency Provider Emergency Medicine; PCP Family Medicine
DX: K52.9 Noninfective gastroenteritis and colitis, unspecified (principal); R11.2 Nausea with vomiting, unspecified; R10.9 Unspecified abdominal pain
CPT/HCPCS: 36415; 74177; 80053; 81003; 81015; 81025; 82272; 85025; 85610; 85730; 86850; 86900; 86901; 87507; 96374; 96375; 99284; J2270; J2405; J2470; Q9967

== ENCOUNTER → 2025-01-13 09:51 | Outpatient (CLI) | payer OTHER, SELFPAY ==
[2025-01-13 11:15] LABS: Add Manual Diff / Slide Review NO; Hematocrit 41.4 % (36-46); Hemoglobin 14.4 g/dL (12.0-16.0); Lymphocytes Absolute Auto 1600 /uL (1100-4500); Mean Corpuscular HGB Conc 34.7 % (30-36); Mean Corpuscular Hemoglobin 35.6 PG (26-34); Mean Corpuscular Volume 102.8 fL (80-100); Platelet Count 242 X10^3/uL (150-400)
[2025-01-13 11:45] LABS: Alanine Aminotransferase 53 IU/L (<35); Albumin 4.2 g/dL (3.5-5.0); Albumin Globulin Ratio 1.8 (1.0-2.8); Alkaline Phosphatase 91 U/L (38-126); Calcium 9.6 mg/dL (8.4-10.2); Carbon Dioxide 28 mmol/L (22-32); Chloride 99 mmol/L (98-107); Cholesterol 197 mg/dL (140-199); Estimated Glomerular Filt Rate > 60 mL/min (>60); Globulin 2.4 g/dL (1.7-4.1); Glucose 80 mg/dL (70-99); HDL Cholesterol 94 mg/dL (40-60); HEMOLYSIS 34 (0-50); Potassium 4.7 mmol/L (3.4-5.1); Sodium 134 mmol/L (137-145); Total Protein 6.6 g/dL (6.3-8.2); Triglycerides 67 mg/dL (35-150)
[2025-01-13 11:49] LABS: Blood Urea Nitrogen 2 mg/dL (7-17)
[2025-01-13 12:16] LABS: Ferritin 138 ng/mL (6-137)
== END ==
PROVIDERS: PCP Family Medicine; Referring Provider Family Medicine; Visit Provider Family Medicine
DX: R03.0 Elevated blood-pressure reading, without diagnosis of hypertension (principal); R53.83 Other fatigue
CPT/HCPCS: 36415; 80053; 80061; 82728; 85025

== ENCOUNTER → 2025-01-17 14:02 | Outpatient (CLI) | payer OTHER, SELFPAY ==
[2025-01-17 15:13] LABS: Appearance Urine UA CLEAR; Bilirubin Urine UA NEGATIVE (NEGATIVE); Color Urine UA YELLOW; Glucose Urine UA NEGATIVE (Negative); Ketones Urine UA NEGATIVE (NEGATIVE); Leukocyte Esterase Urine UA NEGATIVE (NEGATIVE); Nitrite Urine UA NEGATIVE (Negative); Occult Blood Urine UA TRACE-INTACT (Negative); Protein Urine UA NEGATIVE (Negative); Specific Gravity Urine UA <=1.005 (1.000-1.035); Urobilinogen Urine UA 1.0 E.U./dL (0.2); pH Urine UA 7.0 (4.5-8.0)
[2025-01-17 15:27] LABS: Iron 106 ug/dL (37-170)
[2025-01-17 15:59] LABS: TSH w/ Reflex to FT4 1.48 uIU/mL (0.47-4.68)
[2025-01-17 16:35] LABS: Folate 2.6 ng/mL (2.76-20.0); Vitamin B12 294 pg/mL (239-931)
== END ==
PROVIDERS: PCP Family Medicine; Referring Provider Family Medicine; Visit Provider Family Medicine
DX: E66.9 Obesity, unspecified (principal)
CPT/HCPCS: 36415; 81001; 82607; 82746; 83540; 84443

== ENCOUNTER → 2025-01-24 07:42 | Outpatient (CLI) | payer OTHER, SELFPAY ==
--- NOTE | 2025-01-24 07:43 | DI.US.S_ITS ---
PROCEDURE: US ABDOMEN LIMITED INDICATIONS: Right upper quadrant liver TECHNIQUE: Real-time scanning was performed of the abdominal and retroperitoneal organs, with image documentation. COMPARISON: None. FINDINGS: Liver: Liver demonstrates diffusely increased echogenicity, with a more hyperechoic area near the gallbladder measuring 2.8 x 2.7 cm. Gallbladder: No gallstones. No wall thickening. No pericholecystic edema. Negative sonographic Piper's sign. Biliary ducts: Intrahepatic bile ducts are non-dilated. Extrahepatic bile duct caliber measures 3.3 mm. Normal is 6-7 mm or less in diameter, or 10 mm or less post-cholecystectomy. Pancreas: Visualized portions of the pancreas are sonographically normal. Miscellaneous: No free abdominal fluid. IMPRESSION: 1. Findings most suggestive of fatty infiltration of the liver with a more focal fat area near the gallbladder bed. 2. No cholelithiasis or biliary dilatation seen. Dictated by: Eliot Holloway M.D. on 01/25/2025 at 18:31 Approved by: Eliot Holloway M.D. on 01/25/2025 at 18:33
== END ==
LOC: US 07:42
PROVIDERS: PCP Family Medicine; Referring Provider Family Medicine; Visit Provider Family Medicine
DX: E66.9 Obesity, unspecified (principal)
CPT/HCPCS: 76705